=== PATIENT | female | born 1970 ===

== ENCOUNTER 2016-09-10 09:00 | Emergency (ER) | payer SELFPAY ==
[2016-09-10 09:17] VITALS: TEMP 97.8; BMI 31.2
[2016-09-10 10:39] VITALS: BP 124/75; PULSE 65; RESP 18; O2SAT 98
--- NOTE | 2016-09-10 10:57 | C.PDOC ---
History Of Present Illness 44 y/o female presents to ED with complaints of left knee pain for 3 days. Patient state she twisted her knee but denies falling to the ground or symptoms prior to twisting knee. Patient reports taking Meloxicam with some relief. Patient is ambulatory at ED. No other complaints at this time. Time Seen by Provider: 09/10/16 09:31 Chief Complaint (Nursing): Lower Extremity Problem/Injury History Per: Patient History/Exam Limitations: no limitations Onset/Duration Of Symptoms: Days Current Symptoms Are (Timing): Still Present Past Medical History Reviewed: Historical Data, Nursing Documentation, Vital Signs Vital Signs: Last Vital Signs Temp 97.8 F 09/10/16 09:07 Pulse 65 09/10/16 10:38 Resp 18 09/10/16 10:38 BP 124/75 09/10/16 10:38 Pulse Ox 98 09/10/16 11:02 Family History: States: No Known Family Hx - Social History Hx Alcohol Use: No Hx Substance Use: No - Immunization History Hx Tetanus Toxoid Vaccination: Yes Hx Influenza Vaccination: Yes Hx Pneumococcal Vaccination: No Review Of Systems Except As Marked, All Systems Reviewed And Found Negative. Constitutional: Negative for: Fever, Chills Gastrointestinal: Negative for: Nausea, Vomiting, Diarrhea Musculoskeletal: Positive for: Other (knee pain) Skin: Negative for: Rash Neurological: Negative for: Weakness, Numbness Physical Exam - Physical Exam Appears: Non-toxic, No Acute Distress Skin: Normal Color, Warm Head: Atraumatic, Normacephalic Neck: Normal ROM Cardiovascular: Rhythm Regular, No Murmur Respiratory: Normal Breath Sounds, No Rales, No Rhonchi, No Wheezing Extremity: Normal ROM, Capillary Refill (<2 seconds), No Deformity, Other (Left lateral posterior knee pain ) Pulses: Left Dorsalis Pedis: Normal, Right Dorsalis Pedis: Normal Neurological/Psych: Oriented x3, Normal Speech, Normal Cognition, Normal Motor, Normal Sensation, Normal Reflexes Gait: Steady ED Course And Treatment O2 Sat by Pulse Oximetry: 98 (RA) Pulse Ox Interpretation: Normal Disposition - Disposition Referrals: [facility] [Outside] [facility] [Outside] Clinic,Med Surg [Primary Care Provider] - Disposition: HOME/ ROUTINE Disposition Time: 10:15 Condition: GOOD Additional Instructions: Thank you for letting us take care of you today. Your provider was Dr. Wu. You were treated for knee pain. The emergency medical care you received today was directed at your acute symptoms. If you were prescribed any medication, please fill it and take as directed. It may take several days for your symptoms to resolve. Return to the Emergency Department if your symptoms worsen, do not improve, or if you have any other problems. Please contact your doctor or call one of the physicians/clinics you have been referred to that are listed on the Patient Visit Information form that is included in your discharge packet. Bring any paperwork you were given at discharge with you along with any medications you are taking to your follow up visit. Our treatment cannot replace ongoing medical care by a primary care provider (PCP) outside of the emergency department. Thank you for allowing the [facility] team to be part of your care today. Follow up with your doctor or the clinic in 3-4 days for re-evaluation. Prescriptions: Cyclobenzaprine [Cyclobenzaprine HCl] 10 mg PO Q8 PRN #20 tab PRN Reason: Muscle Spasm Instructions: Knee Sprain (ED) Forms: Gen Discharge Inst Armenian Print Language: [id number] - Clinical Impression Clinical Impression: Knee sprain - Scribe Statement The provider has reviewed the documentation as recorded by the Gudelia Cervantes All medical record entries made by the Isabelaibness were at my direction and personally dictated by me. I have reviewed the chart and agree that the record accurately reflects my personal performance of the history, physical exam, medical decision making, and the department course for this patient. I have also personally directed, reviewed, and agree with the discharge instructions and disposition.
--- NOTE | 2016-09-10 12:57 | RAD ---
PROCEDURE: Left Knee Radiographs. HISTORY: Pain. COMPARISON: None. FINDINGS: BONES: No fracture. Prominent broad-based spurring projects over the central tibia- tibial spine on the frontal views. Some concomitant posterior tibial spine ir ring also probable JOINTS: Mild osteoarthrosis tricompartmental joint space narrowing probable on these nonweightbearing views JOINT EFFUSION: Possible small effusion OTHER FINDINGS: None. IMPRESSION: Degenerative/arthritic changes. No fracture or lytic lesion
== END 2016-09-10 10:39 | disposition home or self-care (01) ==
LOC: SUPCPDRO 09:00 → C.ER 09:00
DX: S83.92XA Sprain of unspecified site of left knee, initial encounter (principal); X50.0XXA Overexertion from strenuous movement or load, initial encounter; Y93.89 Activity, other specified; Y92.89 Other specified places as the place of occurrence of the external cause